=== PATIENT | male | born 1955 | race Caucasian/White ===

== ENCOUNTER 2020-01-11 18:38 | Emergency (ER) | payer OTHER ==
[~2020-01-11] VITALS: Ht 182.9 cm; Wt 113.4 kg
[2020-01-11 19:29] LABS: ABSOLUTE LYMPHOCYTES 0.6 thou/uL (0.8-5.3); ABSOLUTE MONOCYTES 0.6 thou/uL (0.0-1.2); ABSOLUTE NEUTROPHILS 5.7 thou/uL (1.6-8.1); BASOPHILS 0.3 %; HEMATOCRIT 47.8 % (42.0-52.0); HEMOGLOBIN 16.3 gm/dL (14.0-18.0); LYMPHOCYTES 8.7 %; MCH 30.1 pg (26.0-34.0); MCHC 34.1 g/dL (28.0-37.0); MCV 88.5 fL (80.0-100.0); MONOCYTES 8.9 %; MPV 9.6 fl. (7.2-11.1); NUCLEATED RBCS 0 /100WBC; PLATELET COUNT* 125 thou/uL (150-400); POLYS 82.1 %; RBC 5.41 mil/uL (4.50-6.00); WBC 6.9 thou/uL (4.0-11.0)
[2020-01-11 19:40] LABS: CALCIUM 8.3 mg/dL (8.5-10.1); CREATININE 1.8 mg/dL (0.6-1.3); POTASSIUM 3.9 mmol/L (3.5-5.1)
[2020-01-11 19:51] LABS: TOTAL BILIRUBIN 1.3 mg/dL (<0.1-1.0)
[2020-01-11] MEDS ORDERED: PREDNISONE 20 M20 MG PO (21:11)
[2020-01-11] MEDS ORDERED: ZPAK PO (21:11)
[2020-01-11] MEDS ORDERED: VENTOLIN HFA 1818 GM INH (21:11)
[2020-01-11] MEDS ORDERED: ONDANSETRON HCL4 M2 PO (21:11)
[2020-01-11 21:31] VITALS: BP 125/86
--- NOTE | 2020-01-12 13:26 | EKG ---
[place] [address] ELECTROCARDIOGRAM REPORT Name: ALYCE RESTREPO Room: [facility]#: [id number] Admission: 01/11/20 Attend Phys: Discharge: 01/11/20 Date of : 57 Date of Service: 01/11/201841 Report #: [id number] THIS REPORT FOR: //name// [facility] ED Test Date: 2020-01-11 Test Time: 18:42:24 Pat Name: ALYCE RESTREPO Department: Room: Gender: [employer] Operator: [facility] : 1955 Requested By: Shari Mckeon Order Number: [id number] MD: Damien Gaming Measurements Intervals [place] Rate: 84 P: 44 FL: 119 QRS: 73 QRSD: 104 T: -2 QT: 351 QTc: 415 Interpretive Statements Sinus rhythm Inferior infarct, old, possible Borderline short [place] interval Borderline repolarization abnormality Baseline wander in lead(s) V3 No previous ECG available for comparison Electronically Signed On 01-12-2020 13:26:23 [employer] by Damien Gaming [email or web address] <ELECTRONICALLY SIGNED> By: Damien Gaming MD, FACC 01/12/20 1326 [id number] Damien Gaming MD, FACC /EPI
== END 2020-01-11 21:32 | disposition home or self-care (01) ==
LOC: M.ERS 18:38
PROVIDERS: Nurse Practitioner Family
DX: U07.1 COVID-19 (principal); E86.0 Dehydration; R19.7 Diarrhea, unspecified